=== PATIENT | female | born 1945 | race Caucasian/White ===

== ENCOUNTER 2017-12-17 19:26 | Emergency (ER) | payer MEDICARE ==
--- NOTE | 2017-12-17 19:48 | ED.PDOC ---
History of Present Illness - General Chief Complaint: Neuro Symptoms/Deficits Stated Complaint: altered mental status Time Seen by Provider: 12/17/17 19:38 Source: EMS notes reviewed, family Exam Limitations: clinical condition - History of Present Illness Initial Comments: THE PATIENT PRESENTS TO THE ED WITH COMPLAINT OF GENERALIZED WEAKNESS AND DECREASED PO INTAKE X5 DAYS PER THE PATIENT'S . PER THE PATIENT'S , SHE WAS IN HER USUAL STATE OF HEALTH UNTIL SHE STOPPED TAKING IN MUCH PO INTAKE SHE USUALLY DID WELL BECAME LETHARGIC. SHE HAS ALSO BEEN DRINKING MINIMAL WATER PER THE . WITH QUESTIONING OF THE PATIENT SHE DENIES/FEVER/CHILLS/VOMITING/CP/SOB AT THIS TIME BUT DOES ENDORSE WEAKNES AND ABDOMINAL PAIN. Timing/Duration: getting worse, other - 5 DAYS AGO Severity: severe Improving Factors: nothing Worsening Factors: nothing Associated Symptoms: loss of appetite, weakness Allergies/Adverse Reactions: Allergies Ciprofloxacin Allergy (Unknown, Verified 09/12/12 16:05) Codeine Allergy (Unknown, Verified 09/12/12 16:05) Diazepam Allergy (Unknown, Verified 09/12/12 16:06) Doxycycline Allergy (Unknown, Verified 09/12/12 16:06) Etodolac Allergy (Unknown, Verified 09/12/12 16:06) Gabapentin Allergy (Unknown, Verified 09/12/12 16:06) Iodine Allergy (Unknown, Verified 09/12/12 16:08) Meperidine Allergy (Unknown, Verified 09/12/12 16:07) Phenobarbital Allergy (Unknown, Verified 09/12/12 16:07) Sulfa Antibiotics Allergy (Unknown, Verified 09/12/12 16:05) Home Medications: Ambulatory Orders Alprazolam [Alprazolam Xr] 12/17/17 Atorvastatin Calcium [Lipitor] 40 mg PO 12/17/17 Losartan Potassium [Cozaar] 50 mg PO 12/17/17 Meloxicam [Mobic] 12/17/17 Review of Systems - Review of Systems Constitutional: States: weakness EENTM: States: no symptoms reported Respiratory: States: cough Cardiology: States: see HPI Gastrointestinal/Abdominal: States: abdominal pain Genitourinary: States: no symptoms reported Musculoskeletal: States: joint pain Neurological: States: weakness Unable to Obtain Due To: other - LIMITED HX DUE TO PATIENT'S CONDITION Past Medical History (General) - Patient Medical History Hx Other - free text: CHRONIC BACK PAIN, HTN, HLD Surgical History: other - FENTANYL PAIN PUMP - Social History Hx Tobacco Use: Yes - Activities of Daily Living Patient Lives Alone: No - THE PATIENT LIVES WITH HER SPOUSE Family Medical History - Family History Mother Family History: Unknown Physical Exam - Physical Exam General Appearance: Lethargic, Ill Appearing Ears, Nose, Throat: hearing grossly normal, normal pharynx Neck: non-tender, full range of motion Respiratory: chest non-tender, lungs clear, normal breath sounds Cardiovascular/Chest: regular rate, rhythm, tachycardia Gastrointestinal/Abdominal: normal bowel sounds, rebound, tenderness Neurologic: alert, other - DISORIENTED TO YEAR/LOCATION BUT KNOWS SELF WELL DESCRIBE HER ACUTE PROBLEMS. Progress - Progress Progress: 12/17/17 19:50 PATIENT PRESENTATION CONCERNING FOR WEAKNESS AT THIS TIME. WILL ORDER EKG/ TROPONIN TO EVALUATE FOR ACS CAUSE OF PATIENT'S WEAKNESS. PATIENT WILL ALSO HAVE CBC TO EVALUATE FOR ANEMIA CAUSE OF HER ACUTE WEAKNESS WELL. PATIENT WILL HAVE CMP ORDERED TO EVALUATE FOR ELECTROLYTE DERANGEMENT WELL DEHYDRATION. PATIENT WILL ALSO HAVE UA TO EVALUATE FOR UTI WELL IMAGING OF THE THORAX TO EVALUATE FOR PNA. THE PATIENT WILL RECEIVE A CT HEAD TO EVALAUTE FOR INTRACRANIAL PATHOLOGY WELL CT AP TO EVALAUTE FOR INTRABDOMINAL PATHOLOGY. PATIENT DISPO WILL BE ADMISSION INTO THE HOSPITAL. 12/17/[id number] THE PATIENT REMAINS CRITICALLY ILL AT THIS TIME. I HAVE REVIEWED HER LABS AND IN LIGHT OF HER ABNORMAL FINDINGS SHE WILL RECEIVE IVF BOLUSES WELL IV ABX AT THIS TIME. THE PATIENT WILL BE MONITORED CLOSELY WHILE IN THE ED 12/17/[id number] DR. ASCENCIO AT [facility] HAS ACCEPTED THE PATIENT. I HAVE WENT TO THE PATIENT'S BEDSIDE TO DISCUSS HER FINDINGS WITH HER FAMILY AND NO ONE IS PRESENT 12/17/[id number] THE PATIENT REMAINS CRITICALLY ILL AT THIS TIME. HER FAMILY HAS BEEN ADVISED OF ALL OF THE PATIENT'S CT FINDINGS WELL LAB RESULTS WELL HER RISK OF MORTALITY AT THIS TIME. THE PATIENT'S FAMILY IS IN AGREEMENT THAT THE PATIENT SHOULD BE TAKE TO [facility] EMERGENTLY. Departure - Departure Clinical Impression: Sepsis, UTI (urinary tract infection), Colitis Time of Disposition: 22:00 - THE PATIENT HAS BEEN ACCEPTED BY DR. ASCENCIO AT [facility] FOR FURTHER EVALUATION AND CARE. Disposition: Transfer to Hospital Condition: Serious Home Medications: Ambulatory Orders Alprazolam [Alprazolam Xr] 12/17/17 Atorvastatin Calcium [Lipitor] 40 mg PO 12/17/17 Losartan Potassium [Cozaar] 50 mg PO 12/17/17 Meloxicam [Mobic] 12/17/17
[2017-12-17] MEDS ORDERED: SODIUM CHLORIDE 0.9% 1000ML 1,000 ML ONE (20:41)
[2017-12-17] MEDS ORDERED: CEFEPIME 2 GM VIAL IVPB ONE (20:52)
[2017-12-17] MEDS ORDERED: SODIUM CHL 0.9% 50ML MIN-BAG+ 50 ML IVPB ONE (20:52)
[2017-12-17] MEDS ORDERED: VANCOMYCIN HCL INJ 1,000 MG VIAL IVPB ONE (20:53)
[2017-12-17] MEDS ORDERED: SODIUM CHLORIDE 0.9% 250ML 250 ML ONE (20:53)
[2017-12-17] MEDS: CEFEPIME 2 GM in SODIUM CHL 0.9% 50ML MIN-BAG+ 50 ML IVPB ONE (20:57)
[2017-12-17] MEDS: VANCOMYCIN HCL INJ 1,000 MG in SODIUM CHLORIDE 0.9% 250ML 250 ML IVPB ONE (20:58)
--- NOTE | 2017-12-17 21:01 | CT ---
EXAM DESCRIPTION: Head CLINICAL HISTORY: AMS. COMPARISON: None Available TECHNIQUE: Contiguous axial CT images of the head were obtained. Coronal and sagittal reconstructions were created from the axial data. This exam was performed according to our departmental dose-optimization program, which includes automated exposure control, adjustment of the mA and/or kV according to patient size and/or use of iterative reconstruction technique. FINDINGS: There is no evidence of acute mass, mass effect, midline shift or hemorrhage. The ventricles and extra-axial CSF spaces are unremarkable. The brain parenchyma appears normal for the patient's age. No acute abnormalities of the bones is seen. IMPRESSION: No acute intracranial abnormality. Electronically signed by: Philippe Cobb 12/17/2017 8:59 PM CDT
[2017-12-17] MEDS: SODIUM CHLORIDE 0.9% 1000ML 1,000 ML IVS ONE ×2 (21:08→21:09)
[2017-12-17] MEDS ORDERED: LACTATED RINGERS 1,000 ML ONE (21:11)
[2017-12-17] MEDS: LACTATED RINGERS 1,000 ML IVS ONE (21:25)
--- NOTE | 2017-12-17 21:29 | CT ---
CT ABDOMEN PELVIS WITHOUT IV CONTRAST, CT CHEST WITHOUT IV CONTRAST Exam date: December 17, 2017 Comparison: CT abdomen pelvis dated July 30, 2007 Indication: Pain Technique: Multiple, helical axial images were obtained through the chest, abdomen, and pelvis without intravenous contrast. Coronal and sagittal reformatted images were obtained. All CT scans at this facility use dose modulation, iterative reconstruction, and/or weight-based dosing when appropriate to reduce radiation dose to as low as reasonably achievable. Dose-length product for the abdomen pelvis exam was 456.94 mGy-cm. Dose-length product for the chest exam was 216.98 mGy-cm. Findings: CHEST: Thyroid: Unremarkable. Axilla: Unremarkable. Lungs: [No consolidation]. A small calcified granuloma in the anterior left lower lobe is present. Several small 4 mm and less nodules in both lungs are including a 3 mm subpleural nodule in the anterior left upper lobe (series 4, image 62); a 3 mm nodule in the right upper lobe (series 4, image 29); and a 4 mm nodule in the superior segment of the left lower lobe (series 4, image 33). Airway: Appears patent. Heart: [Coronary artery atherosclerosis is present]. Heart size is normal. Mediastinum: No mass. Major vasculature: Aortic atherosclerosis is present. No aortic aneurysm. Lymph nodes: No adenopathy. Osseous: Degenerative changes of the thoracic spine noted. A few old left rib fractures are present. Soft tissues: Unremarkable. ABDOMEN AND PELVIS: Liver: [Homogenous attenuation is noted.] Gallbladder/biliary tree: [Gallbladder is surgically absent.] Common bile duct is dilated measuring up to 1 cm in width. No obvious intrahepatic biliary ductal dilatation. Pancreas: [Atrophic changes noted. No evidence of ductal enlargement.] Spleen: Normal Adrenals: Normal Kidneys and ureters: [No evidence of hydronephrosis. Normal enhancement.] A 1.6 cm rounded area of low density projecting from the midpole of the left kidney is present suggestive of a cyst. Bladder: Unremarkable Pelvic organs: Uterus appears prominent for age with suggestion of either endometrial thickening or endometrial complex fluid. Ovaries are not well visualized. Colon: [No evidence of bowel obstruction. Sigmoid colon appears mildly thickened.] Appendix: Not visualized Small bowel: Nondilated Stomach: Normal Vasculature: Extensive vascular calcifications are present throughout the abdomen pelvis. Intrarenal abdominal aortic ectasia noted. Other: There is a small amount of ascites with density greater than simple fluid with occasional Hounsfield units in the upper 20s and 30s. No free air No pathologic adenopathy Soft tissues: Neurostimulator device is present positioned within the subcutaneous tissues of the right lower abdominal wall with lead entering the lumbar spinal canal. Bones: No acute findings. Chronic appearing fracture of the posterior left eighth rib noted. Postoperative and degenerative changes of the lumbar spine noted with posterior fusion from L4 through S1. There is 7 mm right lateral subluxation of L3 relative to L4. No acute abnormality. Degenerative changes of the hips noted. Impression: 1. Uterus appears prominent for age with suggestion of either endometrial thickening or complex endometrial fluid, consider follow-up pelvic ultrasound. Underlying malignant process is not excluded. 2. Small amount of ascites with density mildly greater than simple fluid which may reflect proteinaceous or hemorrhagic component of uncertain origin. 3. Mildly thickened appearance of the sigmoid colon which may be related to colitis (infectious versus inflammatory versus ischemic) versus contraction. 4. No acute process within the chest. 5. Several small nodules in both lungs measuring 4 mm and less. For a high-risk patient, consider optional follow-up chest CT in one year per Fleischner Society criteria. Electronically signed by: Dean Beckford MD 12/17/2017 9:28 PM CDT
[2017-12-17] MEDS ORDERED: metroNIDAZOLE IV PREMIX 500MG 100 ML IVPB ONE (21:51)
[2017-12-17] MEDS: metroNIDAZOLE IV PREMIX 500MG 500 MG in PREMIX BAG 1 BAG IVPB ONE (21:55)
[2017-12-17 22:02] VITALS: BP 93/58
[2017-12-17 22:32] VITALS: TEMP 97.4; O2SAT 97
== END 2017-12-17 22:10 | disposition short-term general hospital (02) ==
LOC: ER 19:26
DX: A41.9 Sepsis, unspecified organism (principal); N39.0 Urinary tract infection, site not specified; K52.9 Noninfective gastroenteritis and colitis, unspecified; R53.1 Weakness; G89.29 Other chronic pain; M54.9 Dorsalgia, unspecified; I10 Essential (primary) hypertension; E78.5 Hyperlipidemia, unspecified; Z79.899 Other long term (current) drug therapy
CPT/HCPCS: 36415; 70450; 71250; 74176; 80053; 81001; 83605; 83690; 84484; 85025; 87040; 87086; 93005; J0692; J3370; J3490; J7030; J7050; J7120